=== PATIENT | male | born 1940 | race Caucasian/White ===

== ENCOUNTER 2023-12-02 10:51 | Emergency (ER) | payer MEDICARE, BC ==
[2023-12-02 13:18] LABS: BASOPHILS ABSOLUTE AUTO 0.04 K/uL (0.00-0.10); BASOPHILS PERCENT AUTO 0.5 % (0.1-1.3); EOSINOPHILS PERCENT AUTO 3.7 % (0.0-5.4); HEMATOCRIT 39.7 % (38.4-49.7); HEMOGLOBIN 14.5 g/dL (12.9-16.9); IMMATURE GRAN ABSOLUTE AUTO 0.11 K/uL (0.00-0.23); IMMATURE GRAN PERCENT AUTO 1.3 % (0.0-0.7); LYMPHOCYTES ABSOLUTE AUTO 1.15 K/uL (0.8-3.3); MEAN CORPUSCULAR HEMOGLOBIN 34.1 pg (31.6-35.5); MEAN CORPUSCULAR HGB CONC 36.5 g/dL (31.6-35.5); MEAN CORPUSCULAR VOLUME 93.4 fL (81.4-99.0); MONOCYTES ABSOLUTE AUTO 0.75 K/uL (0.20-0.90); MONOCYTES PERCENT AUTO 9.1 % (3.3-12.6); NEUTROPHILS ABSOLUTE AUTO 5.86 K/uL (1.0-7.6); NEUTROPHILS PERCENT AUTO 71.4 % (40.0-78.1); PLATELET COUNT,PLT 222 K/uL (130-375); RED BLOOD CELL COUNT 4.25 M/uL (4.14-5.76); WHITE BLOOD CELL COUNT,WBC 8.2 K/uL (3.2-11.0)
[2023-12-02 13:46] LABS: C-REACTIVE PROTEIN 1.25 mg/dL (<0.50); CREATININE 1.6 mg/dL (0.8-1.3); EST CRCL DRUG DOSING (CG) 34.85 mL/min; POTASSIUM,K 4.1 mmol/L (3.6-5.2); TROPONIN I HIGH SENSITIVITY 37.7 pg/mL (<=60.3)
[2023-12-02 13:48] LABS: ANION GAP 16.1 mmol/L (5.0-14.0)
[2023-12-02] MEDS: Sodium Chloride 0.9% 100 ML IV ONE (14:49)
[2023-12-02] MEDS: Iopamidol 755 Mg/ML 100 ML Bottle IV ONE (14:49)
[2023-12-02] MEDS: Sodium Chloride 0.9% 1,000 ML IV ONE (14:57)
[2023-12-02] MEDS: Sodium Chloride 0.9% 10 ML Syringe FLUSH ONE (14:58)
== END 2023-12-02 16:10 | disposition home or self-care (01) ==
LOC: JP.ED 10:51
DX: I26.93 Single subsegmental thrombotic pulmonary embolism without acute cor pulmonale (principal); K21.9 Gastro-esophageal reflux disease without esophagitis; Z87.891 Personal history of nicotine dependence; Z86.16 Personal history of COVID-19; Z95.5 Presence of coronary angioplasty implant and graft; Z79.899 Other long term (current) drug therapy; Z88.0 Allergy status to penicillin; Z88.8 Allergy status to other drugs, medicaments and biological substances
CPT/HCPCS: 36415; 71046; 71275; 80048; 83605; 83880; 84145; 84484; 85025; 86140; 93005; 93010; 96360; 99284; 99285; J3490; J7030; Q9967